=== PATIENT | female | born 1990 | race Two or more races ===

== ENCOUNTER 2024-08-27 05:48 | Inpatient (IN) | payer OTHER, SELFPAY ==
[2024-08-27] VITALS (227 sets, daily range): BP systolic 85–132; BP diastolic 48–104; PULSE 45–123; TEMP 36.4–36.9; O2SAT 93–100; BMI 30.5
--- OUTSIDE RECORDS SUMMARY | 2024-08-27 05:58 | XMS_ITS | Encounter Summary ---
Author Organization [facility] Address [address] [place] [address] Phone Care Team Providers Care Operations Support Analyst Name Role Phone Peng Lowe MD Primary Care Provider [phone] Reason for Visit * Reason Comments Medication Refill Encounter Details Date Type Department Care Team (Late st Contact Info) Description 10/22/2023 Refill [facility] - Internal Medicine - [place] [address] [place] [address] Peng Lowe MD [address] [facility] [place] [address] Medication Refill Social History Tobacco Use Types Packs/Day Years Used Date Smoking Tobacco: Never Passive Smoke Exposure: Never Smokeless Tobacco: Never Alcohol Use Standard Drinks/Week Comments Never 0 (1 standard drink = 0.6 oz pur e alcohol) PHQ-2 Answer Date Recorded Total Score - Questions 1-9 0 07/0 02/2021 Education Answer Date Recorded What is the highest level of school you have completed or the highest degree you have received? GED or equivalent Sexually Active Control Partners Comments Yes Comments No Sex and Gender Information Value Date Recorded Sex Assigned at Not on file Legal Sex Female 12:09 PM CDT Gender Identity Not on file Sexual Orientation Not on file documented as of this encounter Miscellaneous Notes * Telephone Encounter - Dorothy Hanson RN - 10/23/2023 9:36 AM CDT Last OV 09/26/22 Medication failed the protocol, provider to review and approve the medication order if appropriate. Requested Prescriptions Pending Prescriptions Disp Refills albuterol 108 (90 Base) MCG/ACT Aerosol Solution [Pharmacy Med Name: ALBUTEROL HFA INH (200 PUFFS) 8.5GM] 8.5 g Sig: INHALE 1 TO 2 PUFFS BY MOUTH EVERY 6 HOURS NEEDED FOR WHEEZING Short Acting Inhaled Beta-Agonists Protocol Failed - 10/22/2023 6:27 PM Failed - Visit with relevant provider in past 12 months or upcoming 90 days Recent Visits No visits were found meeting these conditions. Showing recent visits within past 365 days and meeting all other requirements Future Appointments No visits were found meeting these conditions. Showing future appointments within next 90 days and meeting all other requirements documented in this encounter Plan of Treatment Not on file documented as of this encounter Visit Diagnoses Not on filedocumented in this encounter Additional Health Concerns Assessment Noted Time PHQ-9 Depression Total Score: 0 12/12/19 21 8:00 AM CDT documented as of this encounter Care Teams Operations Support Analyst Relationship Specialty Start Date End Date Peng Lowe MD [address] [place] [address] PCP - General Internal Medicine 09/25/20 documented as of this encounter
--- OUTSIDE RECORDS SUMMARY | 2024-08-27 05:58 | XMS_ITS | Data Portability ---
Author Organization [facility] Address [address] [place] [address] [address] [place] [address] Care Team Providers Care Whale Fisherman Name Role Phone SERGE MORFIN Primary Care Provider Assessment No assessment recorded. Plan of Treatment Reminders Order Date Submit Date Provider Last Modified By Organization Details Last Modified Time Details Appointments INDUCTION 2024 05:00P Jayme LIVINGSTON MD Not available Not available Not available Lab CBC w/ auto diff 2024 025 [facility] (Lab), [address] [place], [address], 07/28/2024 23:54:41 iron + TIBC + ferritin, serum 2024 025 [facility] (Lab), [address] [place], [address], 07/28/2024 23:54:42 Referral None recorded. Procedures None recorded. Surgeries None recorded. Imaging US, obstetric , follow-up 2024 025 [email or web address] [place], [address], [address], [place], [address], 07/10/2024 20:09:28 Medication Orders None recorded. Patient TargetsNo targets recorded. Patient InstructionsNo instructions recorded. Reason for Referral None Reported. Results Created Date Observation Date Name Description Value Unit Range Abnormal Flag Note LastModifiedBy Organization Detail LastModifiedTime 06/12/1906/12/2024 HEMOG LOBIN (HGB) HGB 10.6 g/dL (based on docume nted legal sex) 11.6-1 5.4 low Not Available [facility] (Lab) [address], [place], [address], 06/13/2024 13:04:56 06/12/19 25 06/12/2024 HEMAT OCRIT (HCT) HCT 32.0 % (based on docume nted legal sex) 34.0-4 5.0 low Not Available [facility] (Lab) [address], [place], [address], 06/13/2024 13:04:57 06/12/1906/12/2024 GTT - GESTA SHAHZAD L SCREE N, ACOG OB glucose, 1 hour screen 148 mg/dL 70-135 high Not Available [facility] (Lab) [address] [place], [address], 06/13/2024 13:04:57 06/12/19 25 06/12/2024 HIV 1/2 ANTIG EN/AN TIBOD Y, REFLE X CONFI RMATI ON HIV antigen/anti body Nonrea ctive nonrea ctive HIV-1 antig en and HIV-1 /HIV- 2 antib odies were not detec cassie. No labor atory evide nce of HIV infec tion. Not Available [facility] (Lab) [address], [place], [address], 06/13/2024 13:04:57 06/12/1906/12/2024 RPR SCREE N, REFLE X TITER /CONF IRMAT ION RPR screen Nonrea ctive nonrea ctive Not Available [facility] (Lab) [address] [place], [address], 06/13/2024 13:04:58 06/17/19 25 06/17/2024 GTT - GESTA SHAHZAD L, 3 HOUR, ACOG glucose, fasting acog 69 mg/dL 70-94 low Not Available [facility] (Lab) [address], [place], [address], 06/18/2024 05:07:21 06/17/19 25 06/17/2024 GTT - GESTA SHAHZAD L, 3 HOUR, ACOG glucose, 1 hour acog 125 mg/dL 70-179 Not Available [facility] (Lab) [address], [place], [address], 06/18/2024 05:07:21 06/17/19 25 06/17/2024 GTT - GESTA SHAHZAD L, 3 HOUR, ACOG glucose, 2 hour acog 86 mg/dL 70-154 Not Available [facility] (Lab) [address], [place], [address], 06/18/2024 05:07:21 06/17/19 25 06/17/2024 GTT - GESTA SHAHZAD L, 3 HOUR, ACOG glucose, 3 hour acog 44 mg/dL 70-139 critical low M-Res ult verif ied by repea t dario sis Not Available [facility] (Lab) [address], [place], [address], 06/18/2024 05:07:21 07/24/19 25 07/24/2024 CBC W/DIF F WBC 10.9 10'3/ uL 3.5-10 .5 high Not Available [facility] (Lab) [address], [place], [address], 07/28/2024 23:54:41 07/24/19 25 07/24/2024 CBC W/DIF F RBC 4.26 10'6/ uL (based on docume nted legal sex) 3.80-5 .20 Not Available [facility] (Lab) [address], [place], [address], 07/28/2024 23:54:41 07/24/19 25 07/24/2024 CBC W/DIF F HGB 12.5 g/dL (based on docume nted legal sex) 11.6-1 5.4 Not Available [facility] (Lab) [address], [place], [address], 07/28/2024 23:54:41 07/24/19 25 07/24/2024 CBC W/DIF F HCT 37.8 % (based on docume nted legal sex) 34.0-4 5.0 Not Available [facility] (Lab) [address], [place], [address], 07/28/2024 23:54:41 07/24/19 25 07/24/2024 CBC W/DIF F MCV 88.7 fL 80.0-9 9.0 Not Available [facility] (Lab) [address], [place], [address], 07/28/2024 23:54:41 07/24/19 25 07/24/2024 CBC W/DIF F MCH 29.3 pg 27.0-3 4.0 Not Available [facility] (Lab) [address], [place], [address], 07/28/2024 23:54:41 07/24/19 25 07/24/2024 CBC W/DIF F MCHC 33.1 g/dL 32.0-3 5.5 Not Available [facility] (Lab) [address], [place], [address], 07/28/2024 23:54:41 07/24/19 25 07/24/2024 CBC W/DIF F RDW 17.2 % 11.0-1 5.0 high Not Available [facility] (Lab) [address], [place], [address], 07/28/2024 23:54:41 07/24/19 25 07/24/2024 CBC W/DIF F plt 267 10'3/ uL 150-40 0 Not Available [facility] (Lab) [address], [place], [address], 07/28/2024 23:54:41 07/24/19 25 07/24/2024 CBC W/DIF F MPV 10.1 fL 8.8-12 .1 Not Available [facility] (Lab) [address], [place], [address], 07/28/2024 23:54:41 07/24/19 25 07/24/2024 CBC W/DIF F neutrophils 72.6 % 34.0-7 3.0 Not Available [facility] (Lab) [address], [place], [address], 07/28/2024 23:54:41 07/24/19 25 07/24/2024 CBC W/DIF F lymphocytes 17.8 % 15.0-5 0.0 Not Available [facility] (Lab) [address], [place], [address], 07/28/2024 23:54:41 07/24/19 25 07/24/2024 CBC W/DIF F monocytes 5.7 % 1.0-15 .0 Not Available [facility] (Lab) [address], [place], [address], 07/28/2024 23:54:41 07/24/19 25 07/24/2024 CBC W/DIF F eosinophils 1.9 % 0.0-8. 0 Not Available [facility] (Lab) [address], [place], [address], 07/28/2024 23:54:41 07/24/19 25 07/24/2024 CBC W/DIF F basophils 0.5 % 0.0-2. 0 Not Available [facility] (Lab) [address], [place], [address], 07/28/2024 23:54:41 07/24/19 25 07/24/2024 CBC W/DIF F immature granulocytes 1.5 % no define d refere nce range Immat ure Granu locyt es (IG) repre sents autom ated enume ratio n of Metam yeloc ytes, Myelo cytes and Promy elocy julio c when IG is < 5%. Blast s are not inclu ded in IG and repor cassie separ ately if prese nt. Not Available [facility] (Lab) [address], [place], [address], 07/28/2024 23:54:41 07/24/19 25 07/24/2024 CBC W/DIF F absolute neutrophils 7.9 10'3/ uL 1.5-8. 0 Not Available [facility] (Lab) [address], [place], [address], 07/28/2024 23:54:41 07/24/19 25 07/24/2024 CBC W/DIF F absolute lymphocytes 1.9 10'3/ uL 1.0-4. 0 Not Available [facility] (Lab) [address], [place], [address], 07/28/2024 23:54:41 07/24/19 25 07/24/2024 CBC W/DIF F absolute monocytes 0.6 10'3/ uL 0.2-1. 0 Not Available [facility] (Lab) [address], [place], [address], 07/28/2024 23:54:41 07/24/19 25 07/24/2024 CBC W/DIF F absolute eosinophils 0.2 10'3/ uL 0.0-0. 6 Not Available [facility] (Lab) [address], [place], [address], 07/28/2024 23:54:41 07/24/19 25 07/24/2024 CBC W/DIF F absolute basophils 0.1 10'3/ uL 0.0-0. 3 Not Available [facility] (Lab) [address], [place], [address], 07/28/2024 23:54:41 07/24/19 25 07/24/2024 CBC W/DIF F absolute immature granulocytes 0.2 10'3/ uL 0.00-0 .10 high Refer ence range s for nonbi nary/ inter sex or unspe cifie d gende r patie nts have not been estab lishe d. Shan castellanos refer to the sylvieo wing table for range s estab lishe d for cisge nder patie nts and evalu ate in the clini ayaka elizabeth xt of the indiv idual patie nt: https :[email or web address] mercedes book. nm.or g/gen derx Not Available [facility] (Lab) [address], [place], [address], 07/28/2024 23:54:41 07/24/19 25 07/24/2024 STEVE TIN / IRON / TRANS STEVE N / TIBC iron 168 ug/dL 40-170 Not Available [facility] (Lab) [address], [place], [address], 07/28/2024 23:54:42 07/24/19 25 07/24/2024 STEVE TIN / IRON / TRANS STEVE N / TIBC transferrin 400 mg/dL 200-36 0 high Not Available [facility] (Lab) [address], [place], [address], 07/28/2024 23:54:42 07/24/19 25 07/24/2024 STEVE TIN / IRON / TRANS STEVE N / TIBC ferritin 16.3 NG/mL 8.0-25 2.0 Not Available [facility] (Lab) [address] [place], [address], 07/28/2024 23:54:42 07/24/19 25 07/24/2024 STEVE TIN / IRON / TRANS STEVE N / TIBC TIBC 560 ug/dL 250-45 0 high Not Available [facility] (Lab) [address] [place], [address], 07/28/2024 23:54:42 07/24/19 25 07/24/2024 STEVE TIN / IRON / TRANS STEVE N / TIBC iron saturation 30 % 20-55 Not Available [facility] (Lab) [address] [place], [address], 07/28/2024 23:54:42 08/08/1908/07/2024 CULTU RE: GROUP B STREP SCREE N, REFLE X SUSCE PTIBI LITY result report SEE RESULT S BELOW abnormal Test: Cultu re: Group B Strep , Refle x Susce ptibi lity ([facility]/ [facility] ) Speci men Sourc e: Vagin a/Rec yamilex Speci men Type: Vagin al/Re ctal Speci men Date: 025 1321 Resul t Date: 025 1437 Resul t Statu s: Final resul t Abnor mal: Yes Resul ting Lab: [facility] [address] [facility] [address] Tel: CULTU RE ----- ----- ----- --- Posit koki for Strep tococ cus agala ctiae (Grou p B) (Abno rmal) Clind amyci n susce ptibl e, eryth romyc in resis tant. The clind amyci n induc tion test ( D-t est ) is negat koki, there fore clind amyci n shoul d be clini kelvin effec tive again st this isola te. Not Available [facility] (Lab) [address], [place], [address], 08/11/2024 15:40:57 07/10/19 25 07/10/2024 US, obste tric, follo w-up No observ ation record ed. [email or web address] [facility] [address], [place], [address], 07/10/2024 13:25:16 07/10/19 25 07/10/2024 US, obste tric, follo w-up No observ ation record ed. [address], [place], [address], 07/11/2024 12:34:07 Result Notes None recorded. Problems Name Problem SNOMED Code Status Onset Date Resolution Date Notes Provider Name and Address Organization Details Recorded Time 51411275 Active 2023 Diandra Duque jigna, [facility] 4 15:23:18 Mild intermittent asthma 331151001 Active 2023 LYSSA LIVINGSTON MD [address], [place], [address], [facility] 4 16:02:32 Mild intermittent asthma 990160825 Active 2023 LYSSA LIVINGSTON MD [address], [place], [address], [facility] 4 16:02:32 Uterine fibroids affecting 23149925 Active Roxie benito, [facility] 4 18:29:55 Uterine fibroids affecting 71696205 Active Roxie Tl benito, [facility] 4 18:29:55 Problem Notes None recorded. Procedures Surgical History Date Name Laterality Status Provider Name and Address Organization Details Recorded Time 12/25/2023 Date of Last Pap Smear completed Allison Aggarwal [facility] 12/25/2023 14:42:59 Imaging Results Imaging Date Name Status LastModified by Organiz ation Details LastModified Time 07/10/2024 US, obstetric, follow-up completed [email or web address] [facility] [address], [place], [address], 07/10/2024 13:25:16 07/10/2024 US, obstetric, follow-up completed [email or web address] [address], [place], [address], 07/11/2024 12:34:07 Procedure Notes None recorded. Medical Equipment None Reported. Allergies No known drug allergies Medications Name Sig Start Date Stop Date Status Note LastModified by Organization Details LastModified Time prednisone 10 mg tablet TAKE 3 TABLETS BY MOUTH DAILY 11/17 completed Not Available Not Available Not Available azithromyci n 250 mg tablet TAKE 2 TABLETS BY MOUTH FOR 1 DAY THEN TAKE 1 TABLET BY MOUTH DAILY FOR 4 DAYS 11/17 completed Not Available Not Available Not Available albuterol sulfate HFA 90 mcg/actuati on aerosol inhaler INHALE 1 TO 2 PUFFS BY MOUTH EVERY 6 HOURS NEEDED FOR WHEEZING active Not Available Not Available No t Available fluticasone propionate 50 mcg/actuati on nasal spray,suspe nsion SHAKE LIQUID AND USE 1 SPRAY IN EACH NOSTRIL TWICE DAILY DIRECTED active Not Available Not Available No t Available Slow Release Iron active Not Available Not Available Not Available Gummies active Not Available Not Available Not Available Vitals Date Recorded Body height Body mass index (BMI) Body weight Systolic blood pressure Diastolic blood pressure Provider Name and Address Organization Details Last Updated DateTime 07/10/2024 142.24 cm 29.8 kg/m2 56105.79 g 110 mm[Hg] 73 mm[Hg] [facility] 5 12:45:35 Date Recorded Body height Body mass index (BMI) Body weight Systolic blood pressure Diastolic blood pressure Provider Name and Address Organization Details Last Updated DateTime 07/24/2024 142.24 cm 30.9 kg/m2 64203.75 g 103 mm[Hg] 68 mm[Hg] [facility] 5 12:21:46 Date Recorded Body height Body mass index (BMI) Body weight Systolic blood pressure Diastolic blood pressure Provider Name and Address Organization Details Last Updated DateTime 08/07/2024 142.24 cm 31.8 kg/m2 91263.12 g 112 mm[Hg] 73 mm[Hg] [facility] 5 12:15:26 Date Recorded Body height Body mass index (BMI) Body weight Systolic blood pressure Diastolic blood pressure Provider Name and Address Organization Details Last Updated DateTime 08/14/2024 142.24 cm 31.8 kg/m2 49186.12 g 108 mm[Hg] 72 mm[Hg] Diandra [place] [facility] 5 11:02:48 Date Recorded Body height Body mass index (BMI) Body weight Systolic blood pressure Diastolic blood pressure Provider Name and Address Organization Details Last Updated DateTime 2024 142.24 cm 32.1 kg/m2 23964.71 g 112 mm[Hg] 74 mm[Hg] Diandra Dunia [facility] 5 12:24:25 Social History Question Answer Notes LastModified by Organizat ion Details LastModified Time Tobacco Smoking Status Never Smoker Aretha Campolyn benito, [facility] 11/17/2022 16:30:39 What Is Your Level Of Alcohol Consumption? None Information not available 11/17/2022 If You Are , What Was Your Level Of Alcohol Consumption Prior To ? None [email or web address] Information not available 12/25/2023 Are You Blind Or Do You Have Difficulty Seeing? No Information n ot available 11/17/2022 What Is Your Level Of Caffeine Consumption? Heavy Information not available 11/17/2022 How Much Tobacco Do You Chew? None [email or web address] Information not available 12/25/2023 In The 14 Days Before Symptom Onset, Have You Had Close Contact With A Laboratory-confirm ed COVID-19 While That Case Was Ill? No Information n ot available 11/17/2022 In The 14 Days Before Symptom Onset, Have You Had Close Contact With A Person Who Is Under Investigation For COVID-19 While That Person Was Ill? No Information not available 11/17/2022 Have You Been To An Area Known To Be High Risk For COVID-19? No Information not available 11/17/2022 Are You Deaf Or Do You Have Serious Difficulty Hearing? No Information not available 11/17/2022 What Type Of Diet Are You Following? VEGETARIAN Information n ot available 11/17/2022 What Is The Highest Grade Or Level Of School You Have Completed Or The Highest Degree You Have Received? [id number] Information not available 11/17/2022 Are There Any Guns Present In Your Home? No Information not available 11/17/2022 Do You Use Protection During Sex? Usually [email or web address] Information not available 12/25/2023 Do You Use Your Seat Belt Or Car Seat Routinely? Yes Information not available 11/17/2022 Are You Sexually Active? Yes Information not available 08/14/2024 Do You Have Smoke And Carbon Monoxide Detectors In Your Home? No Information not available 11/17/2022 How Much Tobacco Do You Smoke? No Information not available 11/17/2022 Do You Feel Stressed (tense, Restless, Nervous, Or Anxious, Or Unable To Sleep At Night)? [id number] Information not available 11/17/2022 Do You Use Any Illicit Or Recreational Drugs? No Information not available 11/17/2022 Do You Use Sunscreen Routinely? Yes Information not available 11/17/2022 Have You Used IV Drugs? No [email or web address] Information not available 12/25/2023 Sex: Unknown Functional Status Question Answer Note LastModified by Organizat ion Details LastModified Time Do you have difficulty walking or climbing stairs? No [email or web address] Information not available 12/25/2023 Are you able to walk? YESWOREST Information not available 11/17/2022 Are you able to care for yourself? Yes [email or web address] Information not available 12/25/2023 Do you have difficulty dressing or bathing? No [email or web address] Information not available 12/25/2023 What is your exercise level? Moderate Information not available 11/17/2022 Mental Status None recorded. Family History Relationship Description Onset Age of this Age Resolved Age Notes LastModified by Organization Details LastModified Time Father No current problems or disability [email or web address] Not available 12:07:24 Mother No current problems or disability [email or web address] Not available 12:07:24 Unspecified Relation Family history unknown [email or web address] Not available 12/24 14:35:43 Medical History Condition Response Allergies (Food, seasonal, environmental ) Y Other N Blood Transfusion N Drug/Latex Allergies/Reactions N Breast Cancer N Dermatologic Disorders N Lung Disease N Defects or Inherited Disease N Breast Problem N Gestational Diabetes N Hematologic disorders N Anesthesia Complications N History of STI N Deep Vein Thrombosis N Polycystic ovary syndrome N Anxiety Disorder N Autoimmune disease N Arthritis N Infertility N Polyps N Acid Reflux (GERD) N History of abnormal pap N Cancer N Stroke N Varicosities N Neurologic/Epilepsy N Endometriosis N High Cholesterol N Headaches N Fibromyalgia N Kidney Disease N Heart Problems N Kidney or Bladder Problems N Thyroid Problems N GI Problems N Eating Disorder N Anemia N Art (IVF or FET) N Psychiatric Illness N Ovarian Cancer N Diabetes N Pulmonary (TB, Asthma) N Hepatitis/Liver Disease N No Past Medical History Y Eczema N Urinary Tract Infection N Abuse/Domestic Violence N Asthma Y Trauma/Violence N Depression/ depression N Heart Disease N Pre-Eclampsia N Hypertension N Osteoporosis N Thrombophilias N Gynecological History Statement/Question Response Date of Last Mammogram Date of LMP 11/25/2023 On BCP's at Conception? N Was last menstrual period normal Y STIs/STDs N HPV Vaccine N Duration of Flow (days) 5 Current Control Method Are cycles usually normal Y Frequency of Cycle (Q days) 28 Sexually Active? Y Menses Monthly Y Date of DEXA bone scan Date of Last Pap Smear 12/25/2023 Sexual Problems? N Obstetrics History GPAL:G 1 P 0 0 0 0 Type Value Living 0 Total 1 Past Encounters Encounter ID Performer Location Encounter Start Date Encounter Closed Date Diagnosis/Indication Diagnosis SNOMED-CT Code Diagnosis ICD10 Code Diagnosis Note [id number] RAJ [facility] [address] [address] 11/17/2022 16:13:34 11/17/2022 17:27:00 Deficient knowledge of preconception health practices 890228458 Z76.89 Today we discussed preconcept ion counseling .UTD on WWE with pap.Consid ering within the next year. We went through our check list of topics/Hea lth Hx was reviewed: 1. intention- time of desired was discussed, when to test, and when to call for New OB Appointmen t. 2. Folic Acid/PNV-- Recommend to go ahead and start now. Guidelines reviewed for folic acid needs 400-800mcg depending on health history/me dical conditions /medicatio n. 3. Medical conditions -reviewed 4. Family Hx-reviewe d. No genetic disorders she is aware of at this time. 5. Medication s-None. No Teratogeni c medication s listed/rep orted including supplement s at this time. 6. Immunizati ons-UTD7. Declined STD screen today8. Toxins-no environmen byron toxins reported9. Illegal drug use is neg10. IPV-Neg, feels supported & safe with current . Nutrition/ physical activity-m ostly plant based/ligh t activity level, BMI wnl All questions answered to patient satisfacti on. Time spent in visit is a total of 30 mins with at least 50% of visit consisting of counseling and review of plan of care. [id number] LYSSA LIVINGSTON MD [facility] [address],[place] [address] 12/25/2023 14:17:38 12/25/2023 15:03:09 Amenorrhea 04056770 N91.2 - positive UPT, 4 weeks by LMP- follow up for OB screen and sneak peek in 4 weeks Gynecologi c examination 39657815 Z01.419 Well woman care- Cervical cancer screening: Pap smear obtained today, will follow up on the results with the patient as they become available- Breast cancer screening: mammogram not indicated- Colon cancer screening: does not qualify- HPV immunizati on: declined- STD testing: declined- hereditary cancer screening: does not qualify for testing [id number] [facility] [address],[place] [address] 01/22/2024 14:18:19 01/22/2024 14:50:37 [id number] LYSSA LIVINGSTON MD [facility] [address],[place] [address] 01/22/2024 14:18:46 01/22/2024 15:45:31 test positive 876181563 Z32.01 1. Exam today within normal limits.2. Ultrasound today confirms GA and viability. EDC . GC/Clamydi a testing done: will f/u as indicated. 4. ACOG guidelines and plan of care for reviewed with patient. All questions answered.5 . Return to office at 12 weeks for new OB visit6. Will need new OB labs at next visit.7. Genetic screening: desires. [id number] [facility] [address],[place] [address] 02/21/2024 14:24:05 02/21/2024 15:14:35 screening 702653413 Z36.82 [id number] Diandra Duque [facility] [address],[place] [address] 02/21/2024 14:25:00 02/21/2024 16:04:13 Mild intermittent asthma 017177177 J45.20 - well controlled Gestation period, 12 weeks 52573137 Z3A.12 [id number] LYSSA LIVINGSTON MD [facility] [address],[place] [address] 03/22/2024 12:08:13 03/22/2024 12:29:01 Routine care 456320797 Z34.91 - continue PNV [id number] [facility] [address],[place] [address] 04/17/2024 10:22:00 04/17/2024 11:41:45 screening for malformation 333348096 Z36.3 Z3A.20 [id number] LYSSA LIVINGSTON MD [place] [address],[place] [address] 04/17/2024 10:23:23 04/17/2024 12:17:03 Routine care 343632701 Z34.91 - continue PNV- EFW 89%, repeat in 4 weeks for cardiac septum and profile view [id number] [facility] [address],[place] [address] 05/15/2024 09:52:33 05/15/2024 11:04:14 screening 123624362 Z36.2 O34.12 Z3A.24 [id number] LYSSA LIVINGSTON MD [place] [address],[place] [address] 05/15/2024 09:53:48 05/15/2024 11:14:02 Uterine fibroids affecting 61091880 D25.9 - L STEPHANIE 3.7x4.4x4c m, stable at 24 weeks- repeat growth US at 32 weeks Gestation period, 24 weeks 497746763 Z3A.24 - continue PNV [id number] LYSSA LIVINGSTON MD [place] [address],[place] [address] 06/12/2024 10:24:04 06/19/2024 03:00:05 Mild intermittent asthma 940906595 J45.20 - well controlled Uterine fi broids affecting 73055252 D25.9 - L STEPHANIE 3.7x4.4x4c m, stable at 24 weeks- repeat growth US at 32 weeks Gestation period, 29 weeks 64682192 Z3A.29 [id number] LYSSA LIVINGSTON MD [facility] [address],[place] [address] 06/26/2024 11:21:22 06/26/2024 12:03:50 Anemia of 97364413 O99.019 - Hgb 10.6 at 28 weeks- PO Fe supplement - Recheck at 34 weeks Gestation period, 30 weeks 86619652 Z3A.30 - continue PNV Uterine fi broids affecting 70566906 D25.9 - L STEPHANIE 3.7x4.4x4c m, stable at 24 weeks- repeat growth US at 32 weeks [id number] Elva Bains [place] [address],[place] [address] 07/10/2024 11:53:12 07/10/2024 12:37:01 Uterine fibroids affecting [id number] D25.9 Z03.74 [id number] LYSSA LIVINGSTON MD [place] [address],[place] [address] 07/10/2024 11:53:33 07/10/2024 14:36:36 Uterine fibroids affecting [id number] D25.9 - L STEPHANIE 3.7x4.4x4c m, stable at 24 and 32 weeks weeks Gestation period, 32 weeks [id number] Z3A.32 - continue PNV [id number] MD Rogelio [facility] [address],[place] [address] 07/24/2024 12:08:30 07/24/2024 16:13:43 Anemia of 25570070 O99.019 - Hgb 10.6 at 28 weeks- PO Fe supplement - Recheck at 34 weeks Gestation period, 34 weeks [id number] Z3A.34 - continue PNV [id number] LYSSA LIVINGSTON MD [place] [address],[place] [address] 08/07/2024 12:05:34 08/07/2024 14:35:34 Uterine fibroids affecting 99666863 D25.9 - L STEPHANIE 3.7x4.4x4c m, stable at 24 and 32 weeks weeks Gestation period, 36 weeks [id number] Z3A.36 - continue PNV- GBS collected [id number] LYSSA LIVINGSTON MD [place] [address],[place] [address] 08/14/2024 10:55:33 08/14/2024 11:27:37 Uterine fibroids affecting 04007984 D25.9 - L STEPHANIE 3.7x4.4x4c m, stable at 24 and 32 weeks Gestation period, 37 weeks 09229408 Z3A.37 - continue PNV [facility] reptococcus carrier [id number] 103 Z22.330 - discussed abx during labor [id number] LYSSA LIVINGSTON MD [place] [address],[place] [address] 2024 12:07:17 2024 13:17:06 Uterine fibroids affecting 25403164 D25.9 - L STEPHANIE 3.7x4.4x4c m, stable at 24 and 32 weeks Gestation period, 38 weeks 90520530 Z3A.38 - continue pNV Health Concerns Section Related Observation LastModified by Organization Detai ls LastModified Time None Recorded Concern Status LastModified by Organization Details LastModified Time None Recorded Advance Directives Directive None Recorded Payers Encounter Date Sequence Insurance Name Policy Number Policy Pardo Covered Member ID Pardo Member ID Guarantor Name 07/10/2024 1 [facility] (MEDICAID HMO) [id number] [facility] [id number] [facility] 07/24/2024 1 [facility] (MEDICAID HMO) [id number] 08/07/2024 1 [facility] (MEDICAID HMO) [id number] [facility] [id number] [facility] 08/14/2024 1 [facility] (MEDICAID HMO) [id number] [facility] [id number] [facility] 2024 1 [facility] (MEDICAID HMO) [id number] [facility] [id number] [facility] OBGyn Episode Ob Episode Information Episode Created Date Number of Fetuses Patient Bloodtype Patient rh Status Prepregnancy Weight lbs Domestic Partner Domestic Partner Phone Father Name Industrial Arts Teacher Status 02/21/20 24 1 A Positive OPEN Fetus Data First Name Last Name Admitted to NICU Weight (g) Sex Living Outcome Pediatric Complications Fetus ID Race Codes Race Delivery Type [id number] Problems Problem Notes Problem Name Start Date End Date Resolution Snomed Code Not e Mild intermittent asthma 02/21/2024 [id number] Uterine fibroids affecting [id number] Carson Calculation Initial Carson Date Initial Exam Date Initial Exam Provider Initial Ultrasound Date Last Menstrual Period Date Ultra Sound Weeks Gestation 08/31/2024 02/21/2024 01/22/2024 11/25/2023 8 Eighteen To Twenty Week Carson Update Ultra Sound Date Fundal Height At Umbil Quickening Date Ultra Sound Latest Weeks Gestation Final Carson Confirmed By Final Carson Confirmed Date Final Carson Date Ultra Sound Latest Days Gestation 0 09/01/19 25 0 Pre-alberto Flowsheet Flowsheet Date 02/21/2024 Pablo Score Blood Edema Fundus Height Fundus Units Glucose Ketones Leukocytes Nitrite Labor Signs Protein Cervic Dilation Cervic Effacement Cervic Station neg none none trace Type Weight in lbs Pre/Post Dialysis Refused Weight 120.450940724762 BP Diastolic BP Location Tested BP Systolic BP Type 71 L arm 111 sitting Fetus Heart Rate Present A 156 Fetus Movement Comments Patient presents to [facility]. No nausea, cramping or bleeding. NT/NB wnl. Desires NIPT, will draw with new OB labs. otherwise uncomplicated. Hx of mild intermittent asthma, well controlled. RTC 4 weeks. Flowsheet Date 03/22/2024 Pablo Score Blood Edema Fundus Height Fundus Units Glucose Ketones Leukocytes Nitrite Labor Signs Protein Cervic Dilation Cervic Effacement Cervic Station neg none none trace Type Weight in lbs Pre/Post Dialysis Refused 122.130151110353 BP Diastolic BP Location Tested BP Systolic BP Type 58 L arm 101 sitting Fetus Heart Rate Present A 150 Fetus Movement A No Comments Doing well, no movemen t yet. No nausea, cramping or bleeding. Discussed travel precautions in . Dsicussed anatomy US next visit. LR NIPT, did not find out gender! All other OB labs wnl. RTC 4 weeks for anatomy US. Flowsheet Date 04/17/2024 Pablo Score Blood Edema Fundus Height Fundus Units Glucose Ketones Leukocytes Nitrite Labor Signs Protein Cervic Dilation Cervic Effacement Cervic Station Type Weight in lbs Pre/Post Dialysis Refused BP Diastolic BP Location Tested BP Systolic BP Type Fetus Heart Rate Present Fetus Movement Comments Flowsheet Date 04/17/2024 Pablo Score Blood Edema Fundus Height Fundus Units Glucose Ketones Leukocytes Nitrite Labor Signs Protein Cervic Dilation Cervic Effacement Cervic Station neg none none trace Type Weight in lbs Pre/Post Dialysis Refused 125.561400024119 BP Diastolic BP Location Tested BP Systolic BP Type 65 L arm 101 sitting Fetus Heart Rate Present A Present Fetus Movement Comments Rare movement. No cram ping or bleeding. Anatomy normal overall, need cardiac septum and profile views. EFW 89%. Will repeat in 4 weeks. Otherwise doing well. RTC 4 weeks. Flowsheet Date 05/15/2024 Pablo Score Blood Edema Fundus Height Fundus Units Glucose Ketones Leukocytes Nitrite Labor Signs Protein Cervic Dilation Cervic Effacement Cervic Station Type Weight in lbs Pre/Post Dialysis Refused BP Diastolic BP Location Tested BP Systolic BP Type Fetus Heart Rate Present Fetus Movement Comments Flowsheet Date 05/15/2024 Pablo Score Blood Edema Fundus Height Fundus Units Glucose Ketones Leukocytes Nitrite Labor Signs Protein Cervic Dilation Cervic Effacement Cervic Station neg none Type Weight in lbs Pre/Post Dialysis Refused 129.067140744171 BP Diastolic BP Location Tested BP Systolic BP Type 64 L arm 102 sitting Fetus Heart Rate Present A Present Fetus Movement A Yes Comments Good movement. No cram ping or bleeding. EFW 68%, cardiac septum and profile wnl. Anatomy now complete. Fibroid stable. Repeat at 32 weeks for growth US. Discussed GCT and labs for next visit. RTC 4 weeks. Flowsheet Date 06/12/2024 Pablo Score Blood Edema Fundus Height Fundus Units Glucose Ketones Leukocytes Nitrite Labor Signs Protein Cervic Dilation Cervic Effacement Cervic Station neg none Type Weight in lbs Pre/Post Dialysis Refused Weight 132.239343901755 BP Diastolic BP Location Tested BP Systolic BP Type 78 L arm 119 sitting Fetus Heart Rate Present A Present Fetus Movement A Yes Comments Baby active. No cramping or bleeding. GCT and labs today. Will repeat growth US at 32 week visit. Discussed tdap. RTC 2 weeks. Flowsheet Date 06/26/2024 Pablo Score Blood Edema Fundus Height Fundus Units Glucose Ketones Leukocytes Nitrite Labor Signs Protein Cervic Dilation Cervic Effacement Cervic Station neg none Type Weight in lbs Pre/Post Dialysis Refused 133.274529201634 BP Diastolic BP Location Tested BP Systolic BP Type 58 L arm 114 sitting Fetus Heart Rate Present Fetus Movement A Yes Comments Good movement. No cram ping or bleeding. Passed 3h GTT. Mild anemia, started Fe supplement. Growth US scheduled for next week. Flowsheet Date 07/10/2024 Pablo Score Blood Edema Fundus Height Fundus Units Glucose Ketones Leukocytes Nitrite Labor Signs Protein Cervic Dilation Cervic Effacement Cervic Station Type Weight in lbs Pre/Post Dialysis Refused BP Diastolic BP Location Tested BP Systolic BP Type Fetus Heart Rate Present Fetus Movement Comments Flowsheet Date 07/10/2024 Pablo Score Blood Edema Fundus Height Fundus Units Glucose Ketones Leukocytes Nitrite Labor Signs Protein Cervic Dilation Cervic Effacement Cervic Station neg none Type Weight in lbs Pre/Post Dialysis Refused Weight 133.626379756024 BP Diastolic BP Location Tested BP Systolic BP Type 73 L arm 110 sitting Fetus Heart Rate Present A Present Fetus Movement A Yes Comments Patient c/o of slight tightn ess. No bleeding or painful cramping. Good movement. EFW 53%, normal JAYDA. Fibroid stable. RTC 2 weeks. Flowsheet Date 07/24/2024 Pablo Score Blood Edema Fundus Height Fundus Units Glucose Ketones Leukocytes Nitrite Labor Signs Protein Cervic Dilation Cervic Effacement Cervic Station neg none Type Weight in lbs Pre/Post Dialysis Refused Weight 138.728094977595 BP Diastolic BP Location Tested BP Systolic BP Type 68 L arm 103 sitting Fetus Heart Rate Present A 140 Fetus Movement A Yes Comments Good movement. No cram ping or bleeding. Discussed preadmission, scheduled. Will schedule EIL 08/27. Discussed GBS swab and SVE for next week. Discussed that given fibroid size and location, unlikely to be obstructing for labor. RTC 2 weeks. Flowsheet Date 08/07/2024 Pablo Score Blood Edema Fundus Height Fundus Units Glucose Ketones Leukocytes Nitrite Labor Signs Protein Cervic Dilation Cervic Effacement Cervic Station neg none 0cm 50% -3 Type Weight in lbs Pre/Post Dialysis Refused Weight 142.226765933171 BP Diastolic BP Location Tested BP Systolic BP Type 73 L arm 112 sitting Fetus Heart Rate Present A 140 Fetus Movement A Yes Comments Good movement. No ctx, LOF, or VB. Overall feeling well. EIL scheduled 08/27. GBS collected. SVE closed. RTC 1 week. Flowsheet Date 08/14/2024 Pablo Score Blood Edema Fundus Height Fundus Units Glucose Ketones Leukocytes Nitrite Labor Signs Protein Cervic Dilation Cervic Effacement Cervic Station neg none Type Weight in lbs Pre/Post Dialysis Refused Weight 142.357162280954 BP Diastolic BP Location Tested BP Systolic BP Type 72 L arm 108 sitting Fetus Heart Rate Present A 145 Fetus Movement A Yes Comments Patient c/o slight pains in side and slight swelling in feet. Good movement. Intermittent cramping. No bleeding or LOF. GBS positive, discussed abx. Labor precautions reviewed. RTC 1 week. Flowsheet Date 2024 Pablo Score Blood Edema Fundus Height Fundus Units Glucose Ketones Leukocytes Nitrite Labor Signs Protein Cervic Dilation Cervic Effacement Cervic Station neg none Type Weight in lbs Pre/Post Dialysis Refused Weight 143.620655393365 BP Diastolic BP Location Tested BP Systolic BP Type 74 L arm 112 sitting Fetus Heart Rate Present A 155 Fetus Movement A Yes Comments Good movement. Some BH contractions. No bleeding or LOF. Induction 08/27. Labor precautions reviewed. Menstrual History Last Menstrual Date Menses Monthly On Bcp Conception Prior Menses Frequency Hcg Plus Date Menarche Onset Age 0611/25/2023 true Delivery Information Delivery Date Delivery Type Labor Anesthesia Weeks Gestation Incision Type Labor Labor Length Hrs Delivered By Post Complications Tubal Sterilization Discharge Date Comments Discharge Information Feeding Method Contraceptive Method Maternal HG B and HCT Levels
--- OUTSIDE RECORDS SUMMARY | 2024-08-27 05:58 | XMS_ITS | Clinical Summary ---
Author Organization [facility] Address [address] [place] [address] Phone Care Team Providers Care Admissions Advisor Name Role Phone Peng Lowe MD Primary Care Provider [phone] Allergies No known active allergies Medications fluticasone (FLONASE) 50 MCG/ACT Suspension 1 Edison by Nasal route 2 times daily. Use in each nostril as directed. 16 g 3 08/22/2022 Active predniSONE (DELTASONE) 10 MG Tablet Take 3 Tablets by mouth daily. 15 Tablet 09/26/2022 Active albuterol 108 (90 Base) MCG/ACT Aerosol Solution INHALE 1 TO 2 PUFFS BY MOUTH EVERY 6 HOURS NEEDED FOR WHEEZING 8.5 g 10/23/2023 Active Active Problems No known active problems Family History Medical History Relation Name Comments No Known Problems Brother No Known Problems Father No Known Problems Mother Relation Name Status Comments Brother Alive Father Alive Mother Alive Social History Tobacco Use Types Packs/Day Years Used Date Smoking Tobacco: Never Passive Smoke Exposure: Never Smokeless Tobacco: Never Tobacco Cessation:Counseling Given: No Alcohol Use Standard Drinks/Week Comments Never 0 [...] on file Sexual Orientation Not on file Last Filed Vital Signs Vital Sign Reading Time Taken Comments Blood Pressure 110/60 09/26/2022 11:28 AM CDT Pulse 96 09/26/2022 11:28 AM CDT Temperature 36.4 C (97.6 F) 09/26/2022 11:28 AM CDT Respiratory Rate 14 07/29/2022 1:37 PM SPA SUPERVISOR Oxygen Saturation 98% 09/26/2022 11:28 AM CDT Inhaled Oxygen Concentration - - Weight 54.4 kg (120 lb) 09/26/2022 11:28 AM CDT Height 144.8 cm (4' 9 ) 09/26/2022 11:28 AM CDT Body Mass Index 25.97 09/26/2022 11:28 AM CDT Plan of Treatment Health Maintenance Due Date Last Done Comments Hepatitis C Virus (HCV) Screening 1989 TdaP Immunization 1989 Hepatitis B Immunization (1 of 3 - 19+ 3-dose series) 2008 Influenza Immunization (#1) 2024 SARS-COV-2 Immunization (2023- season) 2024 09/24/2020, 09/01/2020 Pap Smear 07/29/2025 07/29/2022 Cervical Cancer Screening (CCS) 07/29/2027 HPV/Cotest 07/29/2027 07/29/2022 Respiratory Syncytial Virus (RSV) Immunization (Adult) (1 - 1-dose 75+ series) 2064 Meningococcal Immunization (ACWY) Aged Out No longer eligible b ased on patient's age to complete this topic Pneumococcal Immunization Combined Aged Out No longer eligible b ased on patient's age to complete this topic Rotavirus Immunization Aged Out No lo nger eligible based on patient's age to complete this topic Procedures Procedure Name Priority Date/Time Associated Diagnosis Comments HUMAN PAPILLOMA VIRUS (HPV) Routine 07/29/2022 2:35 PM SPA SUPERVISOR Well woman exam PATHOLOGY CYTOLOGY EDUCATIONAL TECHNICIAN Routine 07/29/2022 2:35 PM SPA SUPERVISOR Well woman exam from Last 3 Months or Most Recently Relevant to Health Maintenance Results * PATHOLOGY CYTOLOGY EDUCATIONAL TECHNICIAN (07/29/2022 2:35 PM SPA SUPERVISOR) SPECIMEN ADEQUACY Satisfactory for evaluation. Endocervical/transf ormation zone component is present. 08/03/2022 8:21 AM SPA SUPERVISOR [facility] DESCRIPTIVE DIAGNOSIS NEGATIVE FOR INTRAEPITHELIAL LESIONS OR MALIGNANCY. 08/03/2022 8:21 AM [facility] Automated Examination Analysis of this sample has been assisted by an automated imaging and review system ([employer] System, [employer], [place], [place]). This case is further evaluated and finalized by a upholstery department supervisor and/or pathologist. 08/03/2022 8:21 AM [facility] Disclaimer The PAP smear is a screening test designed to detect cancerous or precancerous cells of the uterine cervix. It is one of the best means available for detection of cervical cancer but still carries an inherent false-negative rate. The consequences of a false-negative PAP result can be minimized by adhering to current screening guidelines. The following are general guidelines recommended by the ACS, ASCP, ASCCP, and ACOG: PAP testing is recommended every three years for women 21-29, Co-Testing , a PAP test in conjunction with an HPV (Human Papillomavirus) test for women ages 30-65, and no PAP or HPV testing for women under the age of 21 or older than 65 unless clinically indicated. 08/03/2022 8:21 AM SPA SUPERVISOR [facility] Other CERVIX UTERI STRUCTURE / Unknown Non-Phlebotomy Collection / Unknown 07/29/2022 2:35 PM SPA SUPERVISOR 07/29/2022 2:35 PM SPA SUPERVISOR us Dulce Maria Garnica PAC PATHOLOGY/CYTOLOGY ORDER SUSAN Final Result [facility] [address] [place] [address], * HUMAN PAPILLOMA VIRUS (HPV) (07/29/2022 2:35 PM SPA SUPERVISOR) HPV OTHER HIGH RISK TYPES, PCR NEGATIVE NEGATIVE 08/01/2022 2:27 PM SPA SUPERVISOR [facility] Comment: The following Other High Risk types were not detected: 31, 33, 35, 39, 45, 51, 52, 56, 58, 59, 66, and 68. A negative high-risk HPV result does not exclude the possibility of future cytologic HSIL or underlying CIN2-3 or cancer. The presence of PCR inhibitors may cause false negative or invalid results. If concentrations of whole blood in the sample exceed 1.5% (dark red or brown coloration) in PreservCyt solution, there is a likelihood of obtaining a false-negative result. HPV TYPE 16 NEGATIVE NEGATIVE 08/01/2022 2:27 PM SPA SUPERVISOR [facility] Comment: A negative high-risk HPV result does not exclude the possibility of future cytologic HSIL or underlying CIN2-3 or cancer. The presence of PCR inhibitors may cause false negative or invalid results. If concentrations of whole blood in the sample exceed 1.5% (dark red or brown coloration) in PreservCyt solution, there is a likelihood of obtaining a false-negative result. HPV TYPE 18 NEGATIVE NEGATIVE 08/01/2022 2:27 PM SPA SUPERVISOR [facility] Comment: A negative high-risk HPV result does not exclude the possibility of future cytologic HSIL or underlying CIN2-3 or cancer. The presence of PCR inhibitors may cause false negative or invalid results. If concentrations of whole blood in the sample exceed 1.5% (dark red or brown coloration) in PreservCyt solution, there is a likelihood of obtaining a false-negative result. HPV ORDER BE USED FOR SCREENING OR DIAGNOSTIC SCREENING 08/01/2022 2:27 PM SPA SUPERVISOR [facility] Other Non-Phlebotomy Collection / Unknown 07/29/2022 2:35 PM SPA SUPERVISOR 07/29/2022 2:35 PM SPA SUPERVISOR Narrative [facility] - 08/01/2022 2:27 PM SPA SUPERVISOR Performed by Real-Time Polymerase Chain Reaction (PCR) on the Estefany Cornel 4800. This assay has been validated for use with post-aliquot samples from the [employer] processor. us Dulce Maria Garnica PAC LAB SEND OUTS Final Re sult [facility] [address] [place] [address], [facility] [facility] [place] [address] from Last 3 Months or Most Recently Relevant to Health Maintenance Insurance [facility] Care Teams Admissions Advisor Relationship Specialty Start Date End Date Peng Lowe MD [address] [place] [id number] PCP - General Internal Medicine 09/25/20
[2024-08-27 06:23] LABS: OBXCEM ROM Plus Positive (Negative)
--- NOTE | 2024-08-27 07:19 | P.PNAN_ITS ---
Anes - Eval Pre Procedure Procedure: labor epidural Date/Time: 08/27/24 07:19 Surgeon: avani Preop Diagnosis: pain during labor Pre Op Diagnosis: Leaking Patient Data Age: 34 Gender: F Height: Weight: Allergies Allergy/AdvReac Type Severity Reaction Status Date / Time No Known Allergies Allergy Verified 08/05/24 15:08 Home Medications ?Medication ?Instructions ?Recorded ?Confirmed ?Type ferrous sulfate 325 mg (65 mg 325 mg PO DAILY 08/05/24 08/05/24 History iron) tablet (Feosol) vit no.95-ferrous 1 tablet PO DAILY 08/05/24 08/05/24 History fumarate 28 mg-folic acid 800 mcg tablet () Laboratory Tests 08/27/24 06:12 Membranes Rupture Rom plus positive (Negative) Patient hx anesthesia problems: none Family hx anesthesia problems: none Results Review: All pre-operative results and documents have been reviewed as part of the pre- operative evaluation. PMFSH Past Medical History Medical History (Updated 08/27/24 @ 07:19 by Patti Farias CRNA) IUP (intrauterine ), incidental Family History Family History (Updated 08/05/24 @ 14:48 by Carlie Carbone RN) Other No pertinent family history Social History Social History Substance use: never Spiritual care concerns: No Exam Day of Procedure 08/27/24 07:19
[2024-08-27 07:46] LABS: Basophils Absolute Auto 0.1 K/mm3 (0.0-0.1); Basophils Percent Auto 0.5 % (0.2-1.2); Eosinophils Absolute Auto 0.6 K/mm3 (0-0.3); Eosinophils Percent Auto 4.3 % (0-4.4); Hematocrit 39.5 % (37.0-47.0); Hemoglobin 13.6 g/dL (12.0-15.0); Immature Granulocyte Absolute 0.14 K/mm3 (0.00-0.031); Immature Granulocyte Percent A 1.1 % (0-0.5); Lymphocytes Absolute Auto 2.38 K/mm3 (0.9-3.2); Lymphocytes Percent Auto 18.1 % (18.3-44.2); Mean Corpuscular HGB Conc 34.4 g/dl (32-36); Mean Corpuscular Hemoglobin 30.2 pg (26-34); Mean Corpuscular Volume 87.6 fl (80-100); Mean Platelet Volume 9.9 fl (7.4-10.4); Monocytes Absolute Auto 0.7 K/mm3 (0.1-0.6); Monocytes Percent Auto 5.5 % (2.6-8.5); Neutrophils Absolute Auto 9.3 K/mm3 (1.3-6.7); Neutrophils Percent Auto 70.5 % (45.5-73.1); Platelet Count Result 236 k/mm3 (150-375); Red Blood Count 4.51 M/mm3 (4.2-5.4); Red Cell Distribution Width 16.5 % (11.5-14.5); White Blood Count 13.2 K/mm3 (4.5-10.0)
--- NOTE | 2024-08-27 07:50 | LDADM ---
This patient, Blanca Esqueda, was admitted to Labor/Delivery/Recovery 107 on 08/27/24 at 05:48. Plans for labor, pain management and were discussed with patient. Patient/family oriented to hospital policies and general routines including ID bracelet, bed and alarms, visiting hours, pain management, procedures, bathroom and other care routines, personal items, smoking policy, room service/diet and guest tray routines, infant security routines, and visiting hours. Patient/Family are encouraged to report perceived risks to care and to ask questions if they do not understand what they are told or what they should do. See OBIX for further documentation.
[2024-08-27] MEDS: miSOPROStol 25 MCG TABLET 50 MCG BUCCAL (08:25)
[2024-08-27] MEDS: LACTATED RINGERS 1,000 ML 125 ML IV CONT ×3 (08:27→20:35)
[2024-08-27] MEDS: AMPICILLIN 2 GM/NS 100 ML 2 GM/100 ML BAG IVPB (08:27)
[2024-08-27 08:36] LABS: HIV 1/2 Ab P24 Ag Result Negative (Negative)
[2024-08-27 09:43] LABS: Syphilis IgG/IgM Antibody Negative (Negative)
--- NOTE | 2024-08-27 11:02 | WPDOBADMIT ---
Obstetrics - Admit Note Admission Note: record reviewed. No pertinent additions to the history and/or any subsequent changes in the physical findings that are not consistent with the expected course of the were found. Additions to the history and/or subsequent changes in the physical findings follow. None. Pt arrived after SROM at home, plan to augment, anticipate vaginal delivery
[2024-08-27] MEDS: OXYTOCIN 30 UNITS/NS 500 ML 30 UNITS/500 ML BAG IV CONT (12:44)
[2024-08-27] MEDS: AMPICILLIN 1 GM/NS 50 ML 1 GM/50 ML BAG IVPB ×3 (12:44→20:33)
--- NOTE | 2024-08-27 21:20 | PM.OBPNLAB ---
Pain Control Date/time seen: 08/27/24 21:20 Comments: pt comfortable with epidural SVE 4-5//-2 IUPC placed
[2024-08-27] MEDS: SODIUM CHLORIDE 0.9% IV 300 ML 600 ML I-UTERINE (21:54)
[2024-08-27] MEDS: LACTATED RINGERS 500 ML 999 ML IV CONT (22:26)
[2024-08-28] VITALS (20 sets, daily range): BP systolic 101–121; BP diastolic 57–79; PULSE 64–95; RESP 14–18; TEMP 36.2–36.9; O2SAT 97–100
[2024-08-28] MEDS: LACTATED RINGERS 1,000 ML 125 ML IV CONT (00:30)
[2024-08-28] MEDS: AMPICILLIN 1 GM/NS 50 ML 1 GM/50 ML BAG IVPB (00:31)
[2024-08-28] MEDS: ACETAMINOPHEN 500 MG TABLET 1000 MG PO (01:12)
[2024-08-28] MEDS: ONDANSETRON INJ 4 MG/2 ML VIAL IV PUSH (01:13)
[2024-08-28] MEDS: FAMOTIDINE 20 MG/2 ML VIAL IV PUSH (01:13)
[2024-08-28] MEDS: ceFAZolin 2 GM/D5W 50 ML 2 GM/50 ML BAG IVPB (01:15)
--- NOTE | 2024-08-28 01:21 | P.HP_ITS ---
H&P: HPI History of Present Illness Date/Time: 08/28/24 01:21 Chief Complaint: term Narrative: This patient is a 34-year-old primiparous female who has failed to progress through to Labor and now has nonreassuring status. We agreed to proceed with delivery for nonreassuring status and failure to progress. She understands risks, benefits, and alternatives. She has completed the informed consent process and is ready to proceed. The patient understands the details of the procedure. The procedure has been explained in detail. She understands the risks. She understands that injuries may occur that result in hospitalization, more surgery, and severe illness. She understands risk of hemorrhage and infection. She denies any chest pain or shortness of breath. She denies any nausea, vomiting, fever, chills. Review of Systems Review of Systems: All systems reviewed & are unremarkable except as noted in HPI and below Constitutional: Constitutional: Denies chills, Denies fatigue, Denies fever(s) and Denies weakness Eyes: Eyes: Denies blurry vision, Denies change in vision, Denies loss of peripheral vision, Denies loss of vision, Denies other visual disturbances and Denies eye pain ENT: Denies vertigo, Denies dizziness, Denies hearing loss, Denies mouth pain, Denies nasal obstruction, Denies neck mass and Denies neck pain Cardiovascular: Cardiovascular: Denies chest pain, Denies diaphoresis, Denies syncope, Denies leg edema and Denies dyspnea Respiratory: Respiratory: Denies chest congestion, Denies cough, Denies hemoptysis, Denies dyspnea and Denies wheezing Gastrointestinal: Gastrointestinal: Denies abdominal pain, Denies constipation, Denies diarrhea, Denies nausea and Denies vomiting Genitourinary: Genitourinary: Denies hematuria, Denies change in libido, Denies nocturia, Denies genital lesions, Denies flank pain and Denies urinary urgency Musculoskeletal: Musculoskeletal: Denies abnormal gait, Denies back pain, Denies myalgias, Denies arthralgias, Denies joint swelling, Denies muscle weakness and Denies neck pain Integumentary/Breasts: Skin/Breast: Denies swelling, Denies breast pain, Denies breast mass, Denies dry skin, Denies nipple discharge, Denies unusual bruising and Denies jaundice Neurologic: Denies Neuro-related abnormal movements, Denies Abnormal speech present, Denies abnormal gait, Denies behavioral changes, Denies confusion, Denies vertigo, Denies dizziness, Denies syncope, Denies loss of vision, Denies memory loss, Denies convulsions and Denies weakness Psychiatric: Psychiatric: Denies abnormal sleep pattern, Denies behavioral changes, Denies change in libido, Denies confusion, Denies depression, Denies anhedonia and Denies memory loss Endocrine: Endocrine: Reports no additional endocrine complaints, Denies change in libido and Denies fatigue Hematologic/Lymphatic: Hematologic/Lymphatic: Reports no additional hematologic/lymphatic complaints Allergic/Immunologic: Allergic/Immunologic: Reports no additional allergic/immunologic complaints and Denies wheezing PMFSH Past Medical History Medical History (Updated 08/28/24 @ 01:24 by Bairon Vail MD) IUP (intrauterine ), incidental Family History Family History (Updated 08/05/24 @ 14:48 by Carlie Carbone RN) Other No pertinent family history Social History Social History Smoking status: Never smoker Substance use: never Do You Feel Safe in your Home?: Yes Lack of Transportation: No Lack of Food: Never True Current Housing: I Have Housing Concerned About Future Housing: No Difficulty Paying Gas/Electric Bills: No Difficulty Paying for Meds: No Currently Unemployed: No Education: High School Diploma/GED Difficulty w/ Childcare or Family Care: No Spiritual care concerns: No Meds Home Medications and Allergies Home Medications ?Medication ?Instructions ?Recorded ?Confirmed ?Type ferrous sulfate 325 mg (65 mg 325 mg PO DAILY 08/05/24 08/27/24 History iron) tablet (Feosol) vit no.95-ferrous 1 tablet PO DAILY 08/05/24 08/27/24 History fumarate 28 mg-folic acid 800 mcg tablet () Allergies Allergy/AdvReac Type Severity Reaction Status Date / Time No Known Allergies Allergy Verified 08/05/24 15:08 Vital Signs Vital Signs - 24 hr 08/27/24 07:42 08/27/24 07:43 08/27/24 07:47 Temperature Pulse Rate 80 Blood Pressure 110/68 Pulse Oximetry 98 100 Oxygen Delivery 08/27/24 07:48 08/27/24 07:52 08/27/24 07:57 Temperature Pulse Rate Blood Pressure Pulse Oximetry 99 99 Oxygen Delivery Room Air 08/27/24 08:00 08/27/24 08:01 08/27/24 08:02 Temperature 98.1 F Pulse Rate 75 Blood Pressure 109/76 Pulse Oximetry 100 Oxygen Delivery 08/27/24 08:07 08/27/24 08:12 08/27/24 08:17 Temperature Pulse Rate Blood Pressure Pulse Oximetry 100 100 100 Oxygen Delivery 08/27/24 08:22 08/27/24 08:27 08/27/24 08:31 Temperature Pulse Rate 79 Blood Pressure 120/83 Pulse Oximetry 100 100 Oxygen Delivery 08/27/24 08:32 08/27/24 08:37 08/27/24 08:42 Temperature Pulse Rate Blood Pressure Pulse Oximetry 99 100 100 Oxygen Delivery 08/27/24 08:47 08/27/24 08:52 08/27/24 08:57 Temperature Pulse Rate Blood Pressure Pulse Oximetry 99 100 100 Oxygen Delivery 08/27/24 09:01 08/27/24 09:02 08/27/24 09:07 Temperature Pulse Rate 73 Blood Pressure 96/58 L Pulse Oximetry 100 99 Oxygen Delivery 08/27/24 09:17 08/27/24 09:22 08/27/24 09:27 Temperature Pulse Rate Blood Pressure Pulse Oximetry 98 98 98 Oxygen Delivery 08/27/24 09:31 08/27/24 09:32 08/27/24 09:37 Temperature Pulse Rate 79 Blood Pressure 93/71 L Pulse Oximetry 98 98 Oxygen Delivery 08/27/24 09:42 08/27/24 09:47 08/27/24 09:52 Temperature Pulse Rate Blood Pressure Pulse Oximetry 99 98 98 Oxygen Delivery 08/27/24 09:57 08/27/24 10:00 08/27/24 10:19 Temperature 97.7 F Pulse Rate Blood Pressure Pulse Oximetry 99 99 Oxygen Delivery 08/27/24 10:24 08/27/24 10:29 08/27/24 10:31 Temperature Pulse Rate 85 Blood Pressure 123/74 Pulse Oximetry 99 100 Oxygen Delivery 08/27/24 10:34 08/27/24 10:39 08/27/24 10:44 Temperature Pulse Rate Blood Pressure Pulse Oximetry 100 100 100 Oxygen Delivery 08/27/24 10:45 08/27/24 10:50 08/27/24 10:55 Temperature Pulse Rate Blood Pressure Pulse Oximetry 100 100 100 Oxygen Delivery 08/27/24 11:00 08/27/24 11:01 08/27/24 11:05 Temperature Pulse Rate 91 Blood Pressure 122/65 Pulse Oximetry 99 100 Oxygen Delivery 08/27/24 11:10 08/27/24 11:15 08/27/24 11:20 Temperature Pulse Rate Blood Pressure Pulse Oximetry 100 99 99 Oxygen Delivery 08/27/24 11:25 08/27/24 11:30 08/27/24 11:31 Temperature Pulse Rate 83 Blood Pressure 107/62 Pulse Oximetry 99 98 Oxygen Delivery 08/27/24 11:33 08/27/24 11:38 08/27/24 11:43 Temperature Pulse Rate Blood Pressure Pulse Oximetry 93 99 99 Oxygen Delivery 08/27/24 11:48 08/27/24 11:53 08/27/24 11:58 Temperature Pulse Rate Blood Pressure Pulse Oximetry 99 99 99 Oxygen Delivery 08/27/24 12:01 08/27/24 12:03 08/27/24 12:08 Temperature Pulse Rate 80 Blood Pressure 116/68 Pulse Oximetry 99 99 Oxygen Delivery 08/27/24 12:13 08/27/24 12:18 08/27/24 12:23 Temperature Pulse Rate Blood Pressure Pulse Oximetry 99 99 100 Oxygen Delivery 08/27/24 12:28 08/27/24 12:31 08/27/24 12:33 Temperature Pulse Rate 84 Blood Pressure 104/61 Pulse Oximetry 99 98 Oxygen Delivery 08/27/24 12:38 08/27/24 12:43 08/27/24 12:48 Temperature Pulse Rate Blood Pressure Pulse Oximetry 98 100 100 Oxygen Delivery 08/27/24 12:53 08/27/24 12:58 08/27/24 13:01 Temperature Pulse Rate 78 Blood Pressure 85/70 L Pulse Oximetry 100 100 Oxygen Delivery 08/27/24 13:03 08/27/24 13:08 08/27/24 13:13 Temperature Pulse Rate Blood Pressure Pulse Oximetry 99 100 100 Oxygen Delivery 08/27/24 13:18 08/27/24 13:23 08/27/24 13:41 Temperature Pulse Rate Blood Pressure Pulse Oximetry 100 99 100 Oxygen Delivery 08/27/24 13:46 08/27/24 13:51 08/27/24 13:56 Temperature Pulse Rate Blood Pressure Pulse Oximetry 99 100 99 Oxygen Delivery 08/27/24 14:01 08/27/24 14:06 08/27/24 14:11 Temperature Pulse Rate 70 Blood Pressure 119/68 Pulse Oximetry 99 99 100 Oxygen Delivery 08/27/24 14:16 08/27/24 14:21 08/27/24 14:26 Temperature Pulse Rate Blood Pressure Pulse Oximetry 100 99 100 Oxygen Delivery 08/27/24 14:31 08/27/24 14:36 08/27/24 14:41 Temperature Pulse Rate 76 Blood Pressure 126/65 Pulse Oximetry 100 100 100 Oxygen Delivery 08/27/24 14:46 08/27/24 14:51 08/27/24 14:56 Temperature Pulse Rate 92 Blood Pressure 128/76 Pulse Oximetry 100 100 100 Oxygen Delivery 08/27/24 15:01 08/27/24 15:02 08/27/24 15:05 Temperature Pulse Rate 101 H 102 H Blood Pressure 124/64 116/55 L Pulse Oximetry 100 Oxygen Delivery 08/27/24 15:06 08/27/24 15:08 08/27/24 15:10 Temperature Pulse Rate 97 100 97 Blood Pressure 111/63 93/63 L 114/63 Pulse Oximetry 100 Oxygen Delivery 08/27/24 15:11 08/27/24 15:13 08/27/24 15:16 Temperature Pulse Rate 98 99 Blood Pressure 127/66 96/74 L Pulse Oximetry 100 100 Oxygen Delivery 08/27/24 15:18 08/27/24 15:21 08/27/24 15:23 Temperature Pulse Rate 98 98 97 Blood Pressure 115/63 124/65 125/72 Pulse Oximetry 100 Oxygen Delivery 08/27/24 15:25 08/27/24 15:26 08/27/24 15:28 Temperature Pulse Rate 100 116 H Blood Pressure 118/104 H 117/70 Pulse Oximetry 100 Oxygen Delivery 08/27/24 15:31 08/27/24 15:33 08/27/24 15:36 Temperature Pulse Rate 98 100 92 Blood Pressure 111/68 116/73 132/65 Pulse Oximetry 100 100 Oxygen Delivery 08/27/24 15:41 08/27/24 15:46 08/27/24 15:51 Temperature Pulse Rate 80 Blood Pressure 122/66 Pulse Oximetry 100 100 99 Oxygen Delivery 08/27/24 15:56 08/27/24 16:01 08/27/24 16:06 Temperature Pulse Rate 80 Blood Pressure 114/66 Pulse Oximetry 99 100 99 Oxygen Delivery 08/27/24 16:11 08/27/24 16:16 08/27/24 16:21 Temperature Pulse Rate Blood Pressure Pulse Oximetry 100 100 100 Oxygen Delivery 08/27/24 16:26 08/27/24 16:29 08/27/24 16:31 Temperature Pulse Rate 98 99 Blood Pressure 118/80 124/76 Pulse Oximetry 100 100 Oxygen Delivery 08/27/24 16:33 08/27/24 16:36 08/27/24 16:38 Temperature Pulse Rate 105 H 105 H 110 H Blood Pressure 106/66 98/75 L 111/56 L Pulse Oximetry 100 Oxygen Delivery 08/27/24 16:40 08/27/24 16:41 08/27/24 16:43 Temperature Pulse Rate 108 H 105 H Blood Pressure 122/61 109/62 Pulse Oximetry 100 Oxygen Delivery 08/27/24 16:45 08/27/24 16:46 08/27/24 16:48 Temperature Pulse Rate 91 81 Blood Pressure 116/69 121/66 Pulse Oximetry 100 Oxygen Delivery 08/27/24 16:51 08/27/24 16:53 08/27/24 16:56 Temperature Pulse Rate 97 89 Blood Pressure 116/69 124/65 Pulse Oximetry 100 99 Oxygen Delivery 08/27/24 17:00 08/27/24 17:01 08/27/24 17:06 Temperature 98.5 F Pulse Rate 101 H Blood Pressure 118/71 Pulse Oximetry 100 99 Oxygen Delivery 08/27/24 17:11 08/27/24 17:16 08/27/24 17:21 Temperature Pulse Rate 81 Blood Pressure 121/62 Pulse Oximetry 100 99 100 Oxygen Delivery 08/27/24 17:26 08/27/24 17:31 08/27/24 17:36 Temperature Pulse Rate 100 Blood Pressure 118/68 Pulse Oximetry 99 100 100 Oxygen Delivery 08/27/24 17:41 08/27/24 17:46 08/27/24 17:51 Temperature Pulse Rate 68 Blood Pressure 102/49 L Pulse Oximetry 100 100 100 Oxygen Delivery 08/27/24 17:56 08/27/24 18:01 08/27/24 18:06 Temperature Pulse Rate 83 Blood Pressure 88/51 L Pulse Oximetry 100 100 100 Oxygen Delivery 08/27/24 18:11 08/27/24 18:16 08/27/24 18:21 Temperature Pulse Rate 68 Blood Pressure 96/50 L Pulse Oximetry 100 100 100 Oxygen Delivery 08/27/24 18:26 08/27/24 18:31 08/27/24 18:36 Temperature 97.6 F Pulse Rate 72 Blood Pressure 106/52 L Pulse Oximetry 100 100 100 Oxygen Delivery 08/27/24 18:41 08/27/24 18:46 08/27/24 18:51 Temperature Pulse Rate 80 Blood Pressure 110/59 L Pulse Oximetry 100 100 100 Oxygen Delivery 08/27/24 18:56 08/27/24 19:00 08/27/24 19:01 Temperature Pulse Rate 93 Blood Pressure 124/79 Pulse Oximetry 100 100 Oxygen Delivery 08/27/24 19:06 08/27/24 19:11 08/27/24 19:16 Temperature Pulse Rate 79 Blood Pressure 111/67 Pulse Oximetry 100 100 100 Oxygen Delivery 08/27/24 19:21 08/27/24 19:26 08/27/24 19:30 Temperature Pulse Rate 97 Blood Pressure 126/77 Pulse Oximetry 100 100 Oxygen Delivery 08/27/24 19:31 08/27/24 19:36 08/27/24 19:41 Temperature Pulse Rate Blood Pressure Pulse Oximetry 100 100 100 Oxygen Delivery 08/27/24 19:46 08/27/24 19:51 08/27/24 19:56 Temperature Pulse Rate 83 Blood Pressure 121/77 Pulse Oximetry 100 100 100 Oxygen Delivery 08/27/24 20:00 08/27/24 20:01 08/27/24 20:06 Temperature Pulse Rate 100 Blood Pressure 131/75 Pulse Oximetry 100 100 Oxygen Delivery 08/27/24 20:11 08/27/24 20:16 08/27/24 20:21 Temperature Pulse Rate 96 Blood Pressure 112/64 Pulse Oximetry 100 100 100 Oxygen Delivery 08/27/24 20:26 08/27/24 20:30 08/27/24 20:31 Temperature 98.3 F Pulse Rate 76 Blood Pressure 118/70 Pulse Oximetry 100 100 Oxygen Delivery 08/27/24 20:36 08/27/24 20:41 08/27/24 20:46 Temperature Pulse Rate 100 Blood Pressure 107/66 Pulse Oximetry 100 100 100 Oxygen Delivery 08/27/24 20:51 08/27/24 20:56 08/27/24 21:01 Temperature Pulse Rate 98 Blood Pressure 108/70 Pulse Oximetry 100 100 100 Oxygen Delivery 08/27/24 21:06 08/27/24 21:11 08/27/24 21:16 Temperature Pulse Rate 108 H Blood Pressure 101/66 Pulse Oximetry 100 100 100 Oxygen Delivery 08/27/24 21:21 08/27/24 21:26 08/27/24 21:31 Temperature Pulse Rate 81 Blood Pressure 105/77 Pulse Oximetry 100 100 100 Oxygen Delivery 08/27/24 21:36 08/27/24 21:41 08/27/24 21:46 Temperature Pulse Rate 81 Blood Pressure 109/71 Pulse Oximetry 100 100 100 Oxygen Delivery 08/27/24 21:51 08/27/24 21:56 08/27/24 22:01 Temperature Pulse Rate 77 Blood Pressure 111/64 Pulse Oximetry 100 100 99 Oxygen Delivery 08/27/24 22:06 08/27/24 22:11 08/27/24 22:16 Temperature Pulse Rate 91 Blood Pressure 106/60 Pulse Oximetry 100 100 100 Oxygen Delivery 08/27/24 22:21 08/27/24 22:26 08/27/24 22:31 Temperature Pulse Rate 78 Blood Pressure 95/48 L Pulse Oximetry 100 100 98 Oxygen Delivery 08/27/24 22:36 08/27/24 22:41 08/27/24 22:46 Temperature Pulse Rate 73 Blood Pressure 99/55 L Pulse Oximetry 100 99 100 Oxygen Delivery 08/27/24 22:51 08/27/24 22:56 08/27/24 23:01 Temperature Pulse Rate 73 Blood Pressure 96/50 L Pulse Oximetry 98 99 100 Oxygen Delivery 08/27/24 23:06 08/27/24 23:11 08/27/24 23:16 Temperature Pulse Rate 71 Blood Pressure 92/53 L Pulse Oximetry 99 99 98 Oxygen Delivery 08/27/24 23:21 08/27/24 23:26 08/27/24 23:31 Temperature Pulse Rate 100 Blood Pressure 106/64 Pulse Oximetry 99 100 99 Oxygen Delivery 08/27/24 23:36 08/27/24 23:41 08/27/24 23:46 Temperature Pulse Rate 79 Blood Pressure 97/56 L Pulse Oximetry 100 99 99 Oxygen Delivery 08/27/24 23:51 08/27/24 23:53 08/27/24 23:56 Temperature 97.7 F Pulse Rate Blood Pressure Pulse Oximetry 98 99 Oxygen Delivery 08/28/24 00:01 08/28/24 00:06 08/28/24 00:11 Temperature Pulse Rate Blood Pressure Pulse Oximetry 99 98 98 Oxygen Delivery 08/28/24 00:15 08/28/24 00:16 08/28/24 00:21 Temperature Pulse Rate 94 Blood Pressure 121/77 Pulse Oximetry 99 98 Oxygen Delivery 08/28/24 00:26 08/28/24 00:31 08/28/24 00:36 Temperature Pulse Rate 85 Blood Pressure 109/61 Pulse Oximetry 99 98 98 Oxygen Delivery 08/28/24 00:41 08/28/24 00:46 08/28/24 00:51 Temperature Pulse Rate 88 Blood Pressure 106/63 Pulse Oximetry 100 99 99 Oxygen Delivery 08/28/24 00:56 08/28/24 01:01 08/28/24 01:06 Temperature Pulse Rate 94 Blood Pressure 117/79 Pulse Oximetry 99 100 100 Oxygen Delivery Exam Const: General: cooperative, healthy appearing, comfortable and no acute distress Orientation/consciousness: oriented to person, oriented to place and oriented to time HENMT: Head: normal to inspection Ears: external ears normal Face/Nose/Sinus: Normal external nose present and normal facial exam Face and sinus: normal facial exam Eyes: General: appearance normal, both eyes and all related structures Neck: Neck: normal visual inspection, trachea midline and supple Resp: Auscultation: clear to auscultation bilaterally, no crackles, no rales, no rhonchi and no wheezes Cardio: Rate: regular rate Rhythm: regular rhythm Heart sounds: no click, no murmurs and no rubs GI: GI Palp: No abdominal tenderness, No Soft to palpation, No Tenderness to palpation present (GI) and No Palpable mass present Auscultation: normal bowel sounds Skin: General skin exam: normal color and no rashes or lesions noted Neuro: General: oriented to person, oriented to place and oriented to time Extrem: General: normal to inspection, no joint enlargement, no clubbing, cyanosis or edema, no pedal edema and no calf tenderness Psych: Appearance: grossly normal Mental Status: mental status grossly nor mal Speech and movement: Normal speech and movement present H&P: Results Labs Labs: Short CBC 08/27/24 Range/Units 07:38 WBC 13.2 H (4.5-10.0) K/mm3 Hgb 13.6 (12.0-15.0) g/dL Hct 39.5 (37.0-47.0) % Plt Count 236 (150-375) k/mm3 Assessment and Plan Assessment and plan (1) Non-reassuring heart tones complicating , antepartum: Code(s): O36.8390 - Maternal care for abnormalities of the heart rate or rhythm, unspecified trimester, not applicable or unspecified Status: Acute (2) Failure to progress in labor: Code(s): O62.2 - Other uterine inertia Status: Acute Plan This patient is a 34-year-old primiparous female who has failed to progress through to Labor and now has nonreassuring status. We agreed to proceed with delivery for nonreassuring status and failure to progress. She understands risks, benefits, and alternatives. She has completed the informed consent process and is ready to proceed.
--- NOTE | 2024-08-28 01:25 | WPDHPUPDATE1 ---
History and Physical Update Update Date/Time: 08/28/24 01:25 History and Physical has been reviewed, including an updated exam of the patient. There are NO changes in the patient's condition. Risks, benefits, and alternatives have been discussed and questions answered. Patient agrees to proceed with procedure.
--- NOTE | 2024-08-28 02:07 | W.PM.OBCSD ---
OB - Delivery Note Procedure Delivery date: 08/28/24 Pre-op diagnosis: Arrest of Dilation and Non-Reassuring Status Post-op Diagnosis: Same Induction method: AROM and Per Pitocin Protocol Delivery monitor: External FHT and External Uterine Procedure Performed: Primary Surgeon: Bairon Vail MD Anesthesia type: Epidural Description of Procedure/Findings: The patient was taken the operating room.? She was prepped and draped in dorsal supine position with a leftward tilt.? This was done after spinal anesthetic was applied.? A low-transverse skin incision was made and carried down till of the fascia with the knife.? The fascial incision was made with the knife.? The fascial incision was extended laterally with Castellanos scissors.? The fascia was tented upward superiorly and inferiorly the rectus muscles were dissected off bluntly.? The rectus muscles were the midline.? The preperitoneal fat and peritoneum were dissected open bluntly at the superior aspect of the rectus muscles.? The peritoneal incision was extended superior and inferior with good position of bladder.? The uterine incision was made with a scalpel down to the level of the amniotic cavity.? The amniotic cavity was entered bluntly.? The infant was delivered.? The cord was clamped and cut and the was handed off to waiting pediatric staff.? Cord bloods were obtained.? The placenta was removed manually.? The uterus was exteriorized.? The uterus was cleared of all clots, debris and membranes.? The uterus was closed in 0 Vicryl running lock fashion.? An imbricating over a was placed along the incision line as well.? The uterus was returned to the abdomen.? The gutters were cleared of all clots and debris.? The fascia was closed with 0 Vicryl running fashion.? The subcutaneous tissue was irrigated pinpoint bleeders were cauterized.? The skin was closed with subcuticular absorbable davon.? The skin incision line was covered with glue.? The patient tolerated the procedure well.? She has taken recovery room in stable condition.? Sponge lap and needle counts were correct x2.?
[2024-08-28] MEDS: OXYTOCIN 30 UNITS/NS 500 ML 30 UNITS/500 ML BAG 125 UNITS IV CONT ×2 (02:52→04:03)
[2024-08-28] MEDS: fentaNYL CITRATE INJ (*CRX) 100 MCG/2 ML VIAL 50 MCG IV PUSH (03:51)
[2024-08-28] MEDS: KETOROLAC 15 MG/ML VIAL (*BKC) IV PUSH ×3 (06:53→18:41)
[2024-08-28] MEDS: ACETAMINOPHEN 325 MG TABLET 650 MG PO ×3 (06:54→18:42)
[2024-08-28] MEDS: DEXTROSE 5%/0.45% SOD CHL 1,000 ML 125 ML IV CONT (06:57)
[2024-08-28] MEDS: DOCUSATE SODIUM 100 MG CAPSULE PO (08:45)
[2024-08-28] MEDS: SIMETHICONE 80 MG TAB.CHEW PO ×2 (08:45→12:44)
--- NOTE | 2024-08-28 10:00 | PC.NURSE ---
Patient chooses to exclusively bottle feed at this time. No needs stated.
[2024-08-29] MEDS: ACETAMINOPHEN 325 MG TABLET 650 MG PO ×3 (00:30→12:34)
[2024-08-29] MEDS: KETOROLAC 15 MG/ML VIAL (*BKC) IV PUSH (00:35)
[2024-08-29 00:49] VITALS: BP 102/61; PULSE 83; RESP 14; TEMP 36.8; O2SAT 100
[2024-08-29 04:54] VITALS: BP 101/59; PULSE 68; RESP 14; TEMP 36.8; O2SAT 100
[2024-08-29 05:55] LABS: Basophils Absolute Auto 0.1 K/mm3 (0.0-0.1); Basophils Percent Auto 0.4 % (0.2-1.2); Eosinophils Absolute Auto 0.3 K/mm3 (0-0.3); Eosinophils Percent Auto 1.9 % (0-4.4); Hematocrit 30.8 % (37.0-47.0); Hemoglobin 10.1 g/dL (12.0-15.0); Immature Granulocyte Absolute 0.11 K/mm3 (0.00-0.031); Immature Granulocyte Percent A 0.7 % (0-0.5); Lymphocytes Absolute Auto 2.47 K/mm3 (0.9-3.2); Lymphocytes Percent Auto 16.6 % (18.3-44.2); Mean Corpuscular HGB Conc 32.8 g/dl (32-36); Mean Corpuscular Hemoglobin 30.1 pg (26-34); Mean Corpuscular Volume 91.9 fl (80-100); Mean Platelet Volume 10.3 fl (7.4-10.4); Monocytes Absolute Auto 0.6 K/mm3 (0.1-0.6); Monocytes Percent Auto 4.2 % (2.6-8.5); Neutrophils Absolute Auto 11.4 K/mm3 (1.3-6.7); Neutrophils Percent Auto 76.2 % (45.5-73.1); Platelet Count Result 193 k/mm3 (150-375); Red Blood Count 3.35 M/mm3 (4.2-5.4); Red Cell Distribution Width 17.2 % (11.5-14.5); White Blood Count 14.9 K/mm3 (4.5-10.0)
[2024-08-29] MEDS: IBUPROFEN 600 MG TABLET PO ×2 (06:48→12:35)
[2024-08-29] MEDS: DOCUSATE SODIUM 100 MG CAPSULE PO (06:49)
[2024-08-29 08:00] VITALS: BP 112/54; PULSE 72; RESP 18; TEMP 36.6; O2SAT 100
--- NOTE | 2024-08-29 08:29 | P.DS_ITS ---
DS: Admitting Diagnosis Discharge Date August 29, 2024 Admitting Diagnosis Term DS: Discharge Diagnosis Discharge Diagnosis (1) delivery delivered: Code(s): O82 - Encounter for delivery without indication Status: Acute OB - DS: Summary OB Procedures : None OB Procedures Intrapartum: OB Procedures: : None Peripartum Data Procedures: Procedures Operation Date: 08/28/24 01:15 Actual Procedure Side Surgeon p Section Bairon Vail MD Time Spent with Patient Time attestation: Total time spent providing and/or coordinating discharge services: DS: Data Data Completed and Pending Labs on day of discharge: Labs from last 24 hours 08/29/24 04:21 WBC 14.9 H RBC 3.35 L Hgb 10.1 L D Hct 30.8 L MCV 91.9 MCH 30.1 MCHC 32.8 RDW 17.2 H Plt Count 193 MPV 10.3 Immature Gran % (Auto) 0.7 H Neut % (Auto) 76.2 H Lymph % (Auto) 16.6 L [place] % (Auto) 4.2 Eos % (Auto) 1.9 Baso % (Auto) 0.4 Lymph # (Auto) 2.47 [place] # (Auto) 0.6 Eos # (Auto) 0.3 Baso # (Auto) 0.1 Abs Immat Gran (auto) 0.11 H Absolute Neuts (auto) 11.4 H Absolute Nucleated RBC 0.000 Nucleated RBC % 0.0 Discharge Plan Discharge Discharging Clinician: Bairon Vail Patient Disposition: Home, Self-Care Activity: pelvic rest Diet: regular Patient Instructions: Antibiotic Form Patient Language: Lithuanian Stand Alone Forms: General Discharge Information Follow-up/Referrals: Bairon Vail MD [Physician] - Discharge Medications: New hydrocodone-acetaminophen 5-325 mg tablet 1 - 2 tablet PO Q6H PRN (Reason: pain) Qty: 25 0RF Continued PNV cmb#95-ferrous fumarate-FA [] 28 mg iron- 800 mcg tablet 1 tablet PO DAILY ferrous sulfate [Feosol] 325 mg (65 mg iron) tablet 325 mg PO DAILY Date of admission: 08/27/24 05:48 Primary Care Provider: Mynor,Peng Lopes Admitting Provider: Saul Haq Attending physician on admission: Saul Haq Condition: Stable
--- NOTE | 2024-08-29 08:45 | WPDANLDNPN2 ---
Anes-Prog Note L&D-Neuraxial Date/Time: 08/29/24 08:45 Neuraxial medications: epidural PF morphine Opiod-related complaints: none Patient feedback: Patient satisfied with post-operative pain management.
--- NOTE | 2024-08-29 08:46 | WPDANLDPN2 ---
Anes-Prog Note L&D Date/Time: 08/29/24 08:46 Comfortable throughout: labor, delivery and section Neuraxial method: epidural Epidural/Spinal procedure site: clean & non-tender Neuro status: Neuro function grossly intact. Cardiovascular status: normal Respiratory status: normal Airway patency: baseline Mental status: baseline Post-Op hydration status: normal Vital Signs: Last Vital Signs Temp 36.8 C 08/29/24 04:54 Pulse 68 08/29/24 04:54 Resp 14 08/29/24 04:54 BP 101/59 L 08/29/24 04:54 Pulse Ox 100 08/29/24 04:54 O2 Del Method Room Air 08/28/24 16:40 Pain score (VAS): 1 I/O: Intake & Output 08/28/24 08/29/24 08/29/24 23:59 07:59 15:59 Intake Total 840 400 Output Total 1400 600 Balance -560 -200 Post-procedural complaints: none Patient feedback: Patient satisfied with anesthetic care.
[2024-08-30 10:32] VITALS: BP 104/63; PULSE 82; RESP 20; TEMP 36.7; O2SAT 100
== END 2024-08-29 13:37 | disposition home or self-care (01) | DRG 540 ==
LOC: ANHOB2 08-29 12:18 → ANHLDR 08-30 08:18 → ANHOB2 08-30 08:18
PROVIDERS: Admitting Provider Obstetrics & Gynecology; PCP Internal Medicine; Visit Provider Obstetrics & Gynecology
PROC: 10D00Z1 Extraction of Products of Conception, Low, Open Approach (ICD-10-PCS; CPT 59514; principal; 2024-08-28 01:15)
DX: O62.0 Primary inadequate contractions (principal); O76 Abnormality in fetal heart rate and rhythm complicating labor and delivery; O99.824 Streptococcus B carrier state complicating childbirth; Z3A.39 39 weeks gestation of pregnancy; Z37.0 Single live birth
CPT/HCPCS: 36415; 84112; 85025; 86593; 86703; 86850; 86900; 86901; A9270; G0432; J0290; J0690; J1885; J2004; J2274; J2405; J2590; J2795; J3010; J7030; J7120